=== PATIENT | female | born 1995 | race Caucasian/White ===

== ENCOUNTER → 2023-04-11 15:36 | Outpatient (BNVA) | payer BC, SELFPAY | PROVIDERS: PCP Internal Medicine; Visit Provider Physician Assistant Surgical ==

== ENCOUNTER → 2023-05-05 15:33 | Outpatient (BNVA) | payer BC, SELFPAY | PROVIDERS: PCP Internal Medicine; Visit Provider Physician Assistant Surgical ==

== ENCOUNTER 2023-05-22 11:17 | Outpatient (REF) | payer BC, SELFPAY ==
[2023-05-26 11:13] LABS: Vitamin B1 10 nmol/L (8-30)
[2023-05-26 19:03] LABS: Vitamin A 74 mcg/dL (38-98)
== END 2023-05-22 11:18 | disposition home or self-care (01) ==
LOC: HO.LAB 11:17
PROVIDERS: PCP Internal Medicine; Visit Provider Physician Assistant Surgical
DX: E66.9 Obesity, unspecified (principal); E63.9 Nutritional deficiency, unspecified
CPT/HCPCS: 36415; 80053; 80061; 82306; 82533; 82607; 82728; 82746; 83036; 83525; 83540; 83970; 84425; 84443; 84590; 84630; 85025; 86140

== ENCOUNTER → 2023-05-31 13:58 | Outpatient (BNVA) | payer BC, SELFPAY | PROVIDERS: PCP Internal Medicine; Visit Provider Dietitian, Registered | DX: E66.9 Obesity, unspecified (principal); Z71.3 Dietary counseling and surveillance; Z68.39 Body mass index [BMI] 39.0-39.9, adult | CPT/HCPCS: 97802 ==

== ENCOUNTER 2023-07-04 14:28 | Outpatient (AMB) | payer BC, SELFPAY ==
--- NOTE | 2023-07-04 14:29 | MHC.OFFVISWM ---
Intake VS Expanded 07/04/23 14:39 Height 5 ft Weight 187 lb 12.8 oz BMI 36.7 BP 132/74 Blood Pressure Location Rt brachial Blood Pressure Position Sitting Pulse 68 Pulse Source Pulse Oximeter Temp 97.8 F Temperature Source Temporal Artery Scan Pulse Oximetry 98 Oxygen Delivery Method Room Air Body Fat 77.6 Body Fat Percentage 41.4 Free Fat Mass 110.0 Muscle Mass 104.4 Visceral Mass 9.0 Water Mass 79.0 BMR 1,562 Intake Visit Reasons: M[facility] follow up Allergies SEEDS Allergy (Mild, Uncoded 04/11/23 15:48) Anaphylaxis TREE NUT Allergy (Mild, Uncoded 04/11/23 15:48) Anaphylaxis Medication List - Last Reconciled 07/04/23 by CHOLO Adamson albuterol sulfate 90 mcg/actuation 2 puffs inhalation Q6H PRN buspirone 10 mg PO BID dupilumab (Dupixent) 300 mg subcut Q2W epinephrine (EpiPen) 0.3 mg IM Q4H PRN fexofenadine (Christianne Allergy) 60 mg PO DAILY mometasone-formoterol 100-5 mcg/actuation (Dulera) 2 puffs inhalation BID norethindrone ac-eth estradiol 1.5-30 mg-mcg (Junel) 1 tab PO DAILY sertraline 150 mg PO DAILY HPI HPI Comments History of Present Illness Details Pt presents in followup for [facility]. Visit #3 Starting weight: 196/BMI 38.3 Weight at last visit: 192 Total weight change: -8.2 Pt reports summer school has ended, less structured days but when she returns to school will have more structure. Sometimes will have a powercrunch bar for lunch if she does not have time for a meal. Getting Jul 3. Started Kelly chavez. Thinks her hydration is not adequate. Current meal plan: Breakfast: Premier 2 scoops in 8oz 1% milk - feels comfortably full on this, or a premade Premier shake 12pm leftovers from dinner - zucchini, summer squash, cauliflower mixed brown rice - normally chicken, ground turkey, ground chicken dinner: protein, and veg - likes to have variety [employer] [place] yogurt ice cream bar (5g protein) Exercise: 3-4x per week treadmill at in incline 20-30 minutes plus 20 minutes weight training. also likes barre but has not done any classes this month; but has been doing mary lou instead PFSH Surgical History Hx of oral surgery Hx of sinus surgery Hx of wisdom tooth extraction Family History Mother No problems noted. Father Hypertension Brother Asthma Social History Alcohol intake: current Alcohol intake frequency: holidays/special occasions only Patient Tobacco Use Status: Never used Tobacco Physical Exam Vital Signs: Last Vital Signs Temp 97.8 F 07/04/23 14:39 Pulse 68 07/04/23 14:39 BP 132/74 07/04/23 14:39 Pulse Ox 98 07/04/23 14:39 Oxygen Delivery Method Room Air 07/04/23 14:39 BMI result Body Mass Index 36.7 Assessment & Plan Assessment & Plan (1) Obesity: Code(s): E66.9 - Obesity, unspecified Plan Pt doing well on current meal plan and has increased exercise as well. Labs reviewed, discussed elevated cholesterol (was high in the past). Vit D supplemented. RTC 4-6 weeks. Pt also requested additional visit with RD. Patient is obese and is not considered stable at this time. I spent a total of 30 minutes reviewing/updating records, examining the patient and counseling the patient on weight management as detailed above. Coding Level of Care Code Est Pt Level 4 (19139) Diagnoses Obesity E66.9
[2023-07-04 14:39] VITALS: BP 132/74; PULSE 68; TEMP 36.6; O2SAT 98; BMI 36.7
== END 2023-07-04 15:13 | disposition home or self-care (01) ==
PROVIDERS: PCP Internal Medicine; Visit Provider Physician Assistant Surgical
DX: E66.9 Obesity, unspecified (principal); Z68.36 Body mass index [BMI] 36.0-36.9, adult
CPT/HCPCS: 99214

== ENCOUNTER → 2023-07-04 14:28 | Outpatient (BNVA) | payer BC, SELFPAY | PROVIDERS: PCP Internal Medicine; Visit Provider Physician Assistant Surgical ==

== ENCOUNTER → 2023-08-02 16:03 | Outpatient (BNVA) | payer BC, SELFPAY | PROVIDERS: PCP Internal Medicine; Visit Provider Dietitian, Registered | DX: E66.9 Obesity, unspecified (principal); Z68.36 Body mass index [BMI] 36.0-36.9, adult; Z71.3 Dietary counseling and surveillance | CPT/HCPCS: 97803 ==

== ENCOUNTER 2023-09-26 11:21 | Outpatient (AMB) | payer BC, SELFPAY ==
--- NOTE | 2023-09-26 11:03 | MHC.OFFVISWM ---
Intake VS Expanded 09/26/23 11:11 Height 5 ft Weight 189 lb BMI 36.9 Intake Visit Reasons: VIDEO [facility]WL follow up Allergies SEEDS Allergy (Mild, Uncoded 04/11/23 15:48) Anaphylaxis TREE NUT Allergy (Mild, Uncoded 04/11/23 15:48) Anaphylaxis Medication List - Last Reconciled 09/26/23 by CHOLO Adamson albuterol sulfate 90 mcg/actuation 2 puffs inhalation Q6H PRN buspirone 10 mg PO BID cholecalciferol (vitamin D3) 25 mcg PO DAILY dupilumab (Dupixent) 300 mg subcut Q2W epinephrine (EpiPen) 0.3 mg IM Q4H PRN fexofenadine (Christianne Allergy) 60 mg PO DAILY inulin (Fiber Gummies) grams PO mometasone-formoterol 100-5 mcg/actuation (Dulera) 2 puffs inhalation BID norethindrone ac-eth estradiol 1.5-30 mg-mcg (Junel) 1 tab PO DAILY sertraline 150 mg PO DAILY HPI HPI Comments History of Present Illness Details Pt presents in followup for [facility]. Visit #3 with CHOLO. Starting weight: 196 Weight at last visit: 189 Today's weight: 189 Total weight change: -7 Notes she has not been weighing herself and had difficulty getting back into normal routine after her wedding. Current meal plan: Breakfast: Premier 2 scoops in 8oz 1% milk 12pm leftovers from dinner - zucchini, summer squash, cauliflower mixed brown rice - normally chicken, ground turkey, ground chicken yogurt for snack in afternoon dinner: protein, and veg - likes to have variety, trying to do crock pot meals on days she works later- [employer] yogurt ice cream bar (5g protein) trying to get enough water, successful most days Exercise: 3-4x per week treadmill at incline 30 minutes or more plus 20 minutes weight training, also likes vishnu but schedule changed so this is less consistent has difficulty working out on Mon/Tues due to long work days PFSH Surgical History Hx of oral surgery Hx of sinus surgery Hx of wisdom tooth extraction Family History Mother No problems noted. Father Hypertension Brother Asthma Social History Alcohol intake: current Alcohol intake frequency: holidays/special occasions only Patient Tobacco Use Status: Never used Tobacco Assessment & Plan Assessment & Plan (1) Obesity: Code(s): E66.9 - Obesity, unspecified Plan Pt to continue high protein meal plan and already has appt with RD next week to discuss. No changes made today. Discussed her exercise regimen and ensuring some time spent doing cardio in addition to barre/weight training, make sure to prioritize at least 30 minutes cardio on days she exercises. She will restart sending weekly weights via text. Follow up again with me in 5-6 weeks. Patient is obese and is not considered stable at this time. I spent a total of 30 minutes reviewing/updating records, examining the patient and counseling the patient on weight management as detailed above. Coding Level of Care Code Tele Est Pt Level 4 (46652) Diagnoses Obesity E66.9
[2023-09-26 11:11] VITALS: BMI 36.9
== END 2023-09-26 11:24 | disposition home or self-care (01) ==
LOC: HO.HBS 11:21
PROVIDERS: PCP Internal Medicine; Visit Provider Physician Assistant Surgical
DX: E66.9 Obesity, unspecified (principal); Z68.36 Body mass index [BMI] 36.0-36.9, adult
CPT/HCPCS: 99214

== ENCOUNTER → 2023-09-26 11:21 | Outpatient (BNVA) | payer BC, SELFPAY | PROVIDERS: PCP Internal Medicine; Visit Provider Physician Assistant Surgical ==

== ENCOUNTER → 2023-10-16 16:00 | Outpatient (BNVA) | payer BC, SELFPAY | PROVIDERS: PCP Internal Medicine; Visit Provider Dietitian, Registered | DX: E66.9 Obesity, unspecified (principal); Z71.3 Dietary counseling and surveillance | CPT/HCPCS: 97803 ==

== ENCOUNTER 2023-12-19 16:08 | Outpatient (AMB) | payer BC, SELFPAY ==
--- NOTE | 2023-12-19 16:17 | A.OFFVIS_ITS ---
Intake Intake Visit Reasons: (OV) F/U [facility] Allergies SEEDS Allergy (Mild, Uncoded 04/11/23 15:48) Anaphylaxis TREE NUT Allergy (Mild, Uncoded 04/11/23 15:48) Anaphylaxis HPI Nutrition Presentation Details Medical weight loss- start date (05/05/23) Starting weight 196 - BMI 38.3 Current weight 189 Can eat products made in a facility that processes nuts - but nothing that contains nuts and seeds. Reason for consult elevated BMI Diet Assmnt Details Requests ideas for breakfast foods. feels hungry when she just does the shakes. also wants more variety for breakfast Current meal plan: Breakfast: Premier 2 scoops in 8oz 1% milk 12pm leftovers from dinner - zucchini, s ummer squash, cauliflower mixed brown rice - normally chicken, ground turkey, ground chicken dinner: protein, and veg - likes to have variety. has been planning ahead of jamee edu and doing crock pot meals on late nights. struggles at night with sweet cravings. she has a few ideas about getting a food scale, and tracking food. we talked about maintaining a healthy relationship with food still and using these as tools. Drinking more water, bought a stanely cup which made it much easier to hydrate Exercise: 3-4x per week treadmill at in incline 20-30 minutes plus 20 minutes weight training Dietary counseling reduction Diagnosis Nutrition problem #1 overweight/obesity As related to (etiology) #1 excess energy intake and physical inactivity As evidenced by (sign/symptom) #1 high BMI Monitoring/Goals Nutrition problem monitoring total energy intake, level of knowledge/skill, total PRO intake, total CHO intake and weight Outcome progress progressing Learning/Education Readiness to learn excellent Stages of change action Educational materials provided Yes Most Recent Diabetes Results: Cholesterol 238 mg/dL 05/22/23 HDL Cholesterol 53 mg/dL 05/22/23 Triglycerides 186 mg/dL 05/22/23 Creatinine 0.76 mg/dL (0.5-1.4) 05/22/23 Blood Urea Nitrogen 11 mg/dL (9-16) 05/22/23 Sodium 140 mmol/L (135-145) 05/22/23 Potassium 4.5 mmol/L (3.3-5.1) 05/22/23 Chloride 107 mmol/L (96-108) 05/22/23 Carbon Dioxide 23 mmol/L (22-29) 05/22/23 Calcium 11.0 mg/dL (8.4-10.2) H 05/22/23 AST 14 U/L (5-31) 05/22/23 ALT 17 U/L (0-31) 05/22/23 Total Protein 7.7 g/dL (6.5-8.0) 05/22/23 Albumin 4.4 g/dL (3.5-5.0) 05/22/23 PFSH Surgical History Hx of oral surgery Hx of sinus surgery Hx of wisdom tooth extraction Family History Mother No problems noted. Father Hypertension Brother Asthma Social History Alcohol intake: current Alcohol intake frequency: holidays/special occasions only Patient Tobacco Use Status: Never used Tobacco Assessment & Plan Assessment & Plan (1) Obesity (BMI 30-39.9): Code(s): E66.9 - Obesity, unspecified Plan provided high protein options for breakfast and snacks. will follow up in 1-2 MO Coding Level of Care Code Nutr Indiv Subseq (35627) Diagnoses Obesity (BMI 30-39.9) E66.9 Time Spent (min) 30
== END 2023-12-20 14:29 | disposition home or self-care (01) ==
PROVIDERS: PCP Internal Medicine; Visit Provider Dietitian, Registered
DX: E66.9 Obesity, unspecified (principal)

== ENCOUNTER → 2023-12-19 16:08 | Outpatient (BNVA) | payer BC, SELFPAY | PROVIDERS: PCP Internal Medicine; Visit Provider Dietitian, Registered | DX: E66.9 Obesity, unspecified (principal); Z71.3 Dietary counseling and surveillance | CPT/HCPCS: 97803 ==